=== PATIENT | female | born 1990 | race Caucasian/White ===

== ENCOUNTER 2017-11-04 00:11 | Inpatient (IN) ==
[2017-11-04] MEDS ORDERED: *HR* Nalbuphine 10 MG/ML AMPUL IVP PRN (00:21)
[2017-11-04] MEDS ORDERED: Ondansetron 4 MG/2 ML VIAL IVP PRN (00:21)
[2017-11-04] MEDS ORDERED: Naloxone 0.4 MG/ML INJ IVP PRN (00:21)
[2017-11-04] MEDS ORDERED: Famotidine 20 MG/2 ML VIAL IVP PRN (00:21)
[2017-11-04] MEDS ORDERED: Lidocaine 1% 20 ML MDV INFILT PRN (00:21)
[2017-11-04] MEDS ORDERED: Ringers Solution, Lactated 1,000 ML IVC SCH (00:30)
--- NOTE | 2017-11-04 00:35 | OB/GYN History & Physical ---
Date of Encounter: 11/04/17 Time of Encounter: 00:32 Assessment and Plan (1) 40 weeks gestation of Current visit: Yes Status: Acute admit for labor will augment labor if necessary Patient may have Nubain or Epidural for pain management when desires. History of Present Illness Chief complaint: Labor HPI: Ms. Moreno is a 27 year old female @ 40w0d presents to labor and delivery with complaints of contractions that started a few hours ago and have gotten stronger. Patient reports +FM. Patient denies any LOF or VB. Patient reports she was 1/8o% if office at her last appointment. Patient was schedule for IOL at 0800 today. Patient denies any complications with current or past . Blood type: A+ Rubella: Immune Hep B: Nonreactive GBS: Negative Past Med Surg Social Fam HX - Past Medical History Source: patient Medical history: no medical history Psychiatric history: no psych history - Past Surgical History Surgical History: no surgical history - Social History Smoking Status: Never smoker Smokeless Tobacco Status: No Alcohol use: none Drug use: none Occupational status: employed Current living situation: Home - Independent Activity Level: Independent ambulation Recent Out of Country Travel Within the Last 8 Weeks: No Exposure or Possible Exposure to Illness During Travel: No - Family History Mother Age: 56 Family Member Ethnicity: Non- Hx Family Cardiac Disorders: No Hx Family Respiratory Disorders: No Hx Family Cancer: No Hx Family GI Disorders: No Hx Family Genitourinary Disorders: No Hx Family Endocrine Disorder: No Hx Family Musculoskeletal Disorders: No Hx Family Neuromuscular Disorders: No Hx Family Neurologic Disorders: No Hx Family HEENT Disorders: No Hx Family Autoimmune Disorders: No Hx Family Reproductive Disorders: No Hx Family Psychosocial Disorders: No Hx Family Medical Disorders: No Obstetrical History - Pregnancies : 4 Para: 1 Term: 1 : 0 Ab's: 2 Livin Medications and Allergies 3 Allergy/AdvReac Type Severity Reaction Status Date / Time No Known Allergies Allergy Verified 11/04/17 00:37 Review of System OB - Constitutional Constitutional ROS IM: no chills, no fever(s), no headache(s) - Cardiovascular Cardiovascular: no chest pain, no lightheadedness, no palpitations, no syncope - Gastrointestinal Gastrointestinal: no abdominal pain, no constipation, no diarrhea, no heartburn , no nausea, no vomiting - Genitourinary Genitourinary: no abnormal vaginal bleeding, no dysuria, no flank pain, no urinary frequency, no urinary urgency, no vaginal discharge, no vaginal odor Exam - Constitutional Constitutional: well developed, well nourished, no acute distress, average body habitus - HEENT HEENT: Normocephaly, Mucus Membranes Moist - Neck Neck exam: full ROM, supple - Lungs Respiratory exam: CTAB - Cardiovascular Cardiovascular exam: RRR, +S1, +S2 - Abdomen Abdomen: Present: bowel sounds normal, gravid, non tender - Extremities Extremities exam: full ROM, normal capillary refill Deep Tendon Reflex Grade: 2+ Normal - Cervix Dilation: 3 (per RN) Effacement: 80 Station: -1 - Uterus Uterus exam: Present: normal size, normal contour - Comments Comments: FHR 125 bpm moderate variability +15x15 accels no decels noted. Contractions irregular. Cat. 1 tracing Results All other labs normal. - VTE Reasons for not Prescribing Prophylaxis: Treatment not Indicated - Low risk for VTE
[2017-11-04 00:56] LABS: Basophils % 0.2 %; Eosinophils # 0.1 K/mcL (0.0-0.6); Eosinophils % 0.4 %; Hematocrit 36.4 % (35.3-44.9); Hemoglobin 12.9 g/dL (11.5-15.4); Immature Granulocytes % 0.5 % (0-4); Lymphocytes # 2.7 K/mcL (0.6-4.6); Lymphocytes % 20.1 %; Mean Corpuscular HGB Conc 35.4 g/dL (31.6-35.5); Mean Corpuscular Hemoglobin 32.6 pg (28.0-33.3); Mean Corpuscular Volume 91.9 fL (83.0-100.0); Mean Platelet Volume 12.5 fL (9.4-12.4); Monocytes # 0.9 K/mcL (0.0-1.3); Monocytes % 7.1 %; Neutrophils # 9.6 K/mcL (1.6-8.9); Platelet Count 151 K/mcL (140-400); Red Blood Count 3.96 M/mcL (3.82-4.97); Red Cell Distribution Width 13.1 % (11.5-14.5); Segmented Neutrophils % 71.7 %
[2017-11-04 01:21] LABS: Amphetamine Screen,Urine Negative ng/mL (Cutoff=1000); Barbiturate Screen,Urine Negative ng/mL (Cutoff=200); Benzodiazepines Screen,Urine Negative ng/mL (Cutoff=200); Cannabinoid Screen,Urine Positive ng/mL (Cutoff = 50); Cocaine Screen,Urine Negative ng/mL (Cutoff= 300); Opiate Screen,Urine Negative ng/mL (Cutoff=300); Phencyclidine Screen,Urine Negative ng/mL (Cutoff=25)
[2017-11-04] MEDS ORDERED: Oxytocin 20 units/ LR 1000 mL 20 UNIT/1,000 ML BAG IVC SCH ×2 (01:30→09:41)
[2017-11-04] MEDS ORDERED: Epidural Premix (fent/bupiv) 110 ML EP ONE (02:26)
[2017-11-04] MEDS ORDERED: Lidocaine -MPF 2% 5 ML VIAL ONE (02:28)
--- NOTE | 2017-11-04 03:00 | Anesthesia Evaluation PreOp ---
Date of Encounter: 11/04/17 Time of Encounter: 02:39 - Past History Planned Operation: vaginal del, induction 40wks Cardiac History: Denies any Significant Hx Pulmonary History: Denies Any Significant HX PATIENT TRANSPORT OFFICER History: Denies Any Significant HX Other Medical History: Other (chronic back pain, hernatied disc ? level denies radiculopathy or dependent issues, states it just hurt with last epidural no lasting effects reported.) Anesthesia History: No Prior Anesthetic Complications, Past Anesthesia Alcohol Use: none Drug use: none Medications and Allergies 3 Allergy/AdvReac Type Severity Reaction Status Date / Time No Known Allergies Allergy Verified 11/04/17 00:37 Anesthesia Results - Labs 11/04/17 00:30 Anesthesia Exam - HEENT Pupil (Motor): Pupils equal Mallampati: II Teeth: Normal Oral Opening: Greater than 3 - PATIENT TRANSPORT OFFICER LOC: Oriented PATIENT TRANSPORT OFFICER Motor: Normal RUE, Normal LUE, Normal RLE, Normal LLE, Normal Face PATIENT TRANSPORT OFFICER Sensory: Normal: RUE, LUE, RLE, LLE, Face - Cardiac Rhythm: Regular - Pulmonary Breath Sounds: bilateral Clear Respiratory Effort: Symmetrical Anesthesia Assess/Plan ASA Score: 2 Modified Kingsbury Scale for Level of Consciousness: Cooperative, oriented, and tranquil Anesthetic Plan: General, Regional Monitoring Plan: Standard Monitors Recovery Plan: PACU
[2017-11-04] MEDS ORDERED: Epidural Premix (fent/bupiv) 110 ML EP SCH (03:15)
[2017-11-04] MEDS ORDERED: Mag Hydrox/Al Hydrox/Simeth 30 ML UDC PO PRN (03:17)
--- NOTE | 2017-11-04 04:02 | Anesthesia Procedures ---
Date of Encounter: 11/04/17 Time of Encounter: 02:41 Procedures: Anesthesia - Epidural/Spinal Patient ID/Chart reviewed: Yes Patient examined: Yes OB Eval: Gestational age: term OB Eval: : 4 OB Eval: Hx Para: 1 OB Eval: Contractions: Non-stressed pattern Consent Obtained: Yes Supplemental Oxygen: None/Room Air Site Prep: Aseptic Technique, Sterile prep and drape, 0.5% Chlorhexidine/Alcohol Patient position: upright Local Anesthetic: Lidocaine 1% Amount of Local Anesthetic used: 2 Touhy Needle Gauge: 18 Touhy Needle Depth (cm): 8 Catheter Depth at Skin (cm): 12 Test Dose (1.5% Lido + Epi): Volume given (mls): 3 Test Dose Result: Negative Loading Dose: Other: 10ml from solution Infusion Med: 0.125% Bupivacaine w/ 2 mcg/ml Fentanyl Infusion Rate (mls/hr): [address]: Tegaderm, Tape Interspace Used: L3-L4 Loss of Resistance (PAT): Yes (saline) Blood: No CSF: No Paresthesia: No Procedure: vss though out, FHR stable per staff
--- NOTE | 2017-11-04 04:19 | OB Labor Progress Note ---
Date of Encounter: 11/04/17 Time of Encounter: 04:16 Labor Progress Note - Subjective Subjective: Patient resting comfortably with epidural in place. Discussed POC with patient. Patient denies any questions or concerns. Pitocin has been started 2 milliunits. - Cervix Cervix: 6/90/-1 - Heart Tones Heart Tones: 125 bpm moderate amount of variabilit +15x15 accels no decels noted. Cat. 1 tracing - [place]: 2-3 min apart - Interventions Interventions: SVE, AROM moderate amount of clear fluid. IUPC placed without difficulty. Patient tolerated well. - Plan Plan: Continue labor management. anticipate
--- NOTE | 2017-11-04 06:28 | OB/GYN Procedure Note ---
Delivery - Delivery Date: 11/04/17 Provider: Brissa Bartholomew Intrapartum events: none Delivery augmentation: rupture of membranes, pitocin Delivery monitor: external FHT, external uterine Anesthesia: epidural Quantitated Blood Loss: 150 - Infant (s) A Infant Delivery Date: 11/04/17 Delivery Time: 05:50 Presentation: vertex Position: SPENCER Route of delivery: Gender: Male Viability: Viable Pounds: 6 Ounces: 5 Weight Gram: 2865 kg at 1 minute: 9 at 5 mins: 9 Shoulder Dystocia: not encountered Placenta: spontaneous, uterine exploration Cord: nuchal cord (X1), 3 umbilical vessels - Repair Episiotomy: none Laceration Description: Perineal - 2nd Degree (repaired with 3-0 vicryl) - Complications Delivery complications: none - Disposition Mom disposition: stable in LDR [place] disposition: stable in LDR - Comments Comments: Called to LDR patient complete and states she needs to push. Patient was placed in stirrups and prepped for vaginal delivery. Under maternal effort patient spontaneously delivered a viable male over a 2nd degree perineal laceration. A nuchal cord x1 was loose and easily reduced, no meconium or shoulder dystocia was encountered. was placed on maternal abdomen. The second degree perineal laceration was repaired with 3-0 vicryl. Cord was clamped and cut after pulsations ceased. Placenta delivered spontaneously and intact. Pericare provided, All counts correct. Both mother and infant stable in LDR for 2 hour recovery.
[2017-11-04] MEDS ORDERED: Benzocaine/Menthol 56 GM AEROSOL SPRAY TP PRN (09:41)
[2017-11-04] MEDS ORDERED: Measles/Mumps/Rubella Vacc 0.5 ML VIAL SQ PRN (09:41)
[2017-11-04] MEDS ORDERED: Prenatal Vit/FA 1 EACH TABLET PO SCH (09:41)
[2017-11-04] MEDS ORDERED: Lanolin 7 G OINT...G. TP PRN (09:41)
[2017-11-04] MEDS ORDERED: Acetaminophen 325 MG TABLET PO PRN (09:41)
[2017-11-04] MEDS ORDERED: *HR* HYDROcodone/Acet 5/325 mg TABLET PO PRN (09:41)
[2017-11-04] MEDS: Ibuprofen 600 MG TABLET PO PRN ×2 (09:48→20:09)
[2017-11-05] MEDS: Ibuprofen 600 MG TABLET PO PRN (07:26)
[2017-11-05 08:17] VITALS: BP 115/76
--- NOTE | 2017-11-05 08:58 | Discharge Summary ---
Date of Encounter: 11/05/17 Time of Encounter: 08:57 - Discharge Diagnosis (1) 40 weeks gestation of Priority: Secondary Status: Acute (2) Vaginal delivery Priority: Primary Status: Acute Comments: Continue routine care discharge home today follow up with Dr. Dietz in 4-6 weeks (3) Breast feeding status of mother Priority: Secondary Status: Acute Comments: support prn - Discharge Medications Prescriptions: Ibuprofen [Motrin] 600 mg PO Q6HR PRN #60 tablet PRN Reason: Cramping Breast Pump [BREAST PUMP] 1 each .ROUTE AD #1 each Home Medications: Benzocaine/Menthol [place] [Dermoplast Hem[place]] 1 appl TP QID PRN aerosol 11/05/17 [Rx] Breast Pump [BREAST PUMP] 1 each .ROUTE AD #1 each 11/05/17 [Rx] Docusate [Colace] 100 mg PO BID capsule 11/05/17 [Rx] Ibuprofen [Motrin] 600 mg PO Q6HR PRN #60 tablet 11/05/17 [Rx] Lanolin [Lansinoh] 1 appl TP TID PRN oint...g. 11/05/17 [Rx] Vit/FA 1 each PO DAILY tablet 11/05/17 [Rx] Allergies/Adverse Reactions: 3 Allergy/AdvReac Type Severity Reaction Status Date / Time No Known Allergies Allergy Verified 11/04/17 00:37 Data Procedures and tests throughout hospitalization: Laboratory Tests 11/04/17 11/04/17 11/04/17 00:30 00:30 00:45 WBC 13.3 H RBC 3.96 Hgb 12.9 Hct 36.4 MCV 91.9 MCH 32.6 MCHC 35.4 RDW 13.1 Plt Count 151 MPV 12.5 H Immature Gran % 0.5 Seg Neutrophils % 71.7 Lymphocytes % 20.1 Monocytes % 7.1 Eosinophils % 0.4 Basophils % 0.2 Neutrophils # 9.6 H Lymphocytes # 2.7 Monocytes # 0.9 Eosinophils # 0.1 Basophils # 0.0 Urine Opiates Screen Negative Ur Barbiturates Screen Negative Ur Phencyclidine Scrn Negative Ur Amphetamines Screen Negative U Benzodiazepines Scrn Negative Urine Cocaine Screen Negative U Marijuana (THC) Screen Positive H Ur Drug Screen Interp See Below Specimen Rejected Labelling Date of admission: 11/04/17 00:11 Primary care physician: Chilo Arevalo CNP Consults: 11/04/17 09:41 Consult to [employer]namenter [CONS] Routine Comment: Vaginal delivery, consult needed Consult to [employer] [CONS] Routine Reason for SW Consult: cord stat Discharging clinician: Brissa Bartholomew Anticipated date of discharge: 11/05/17 - Patient Status Disposition: Home, Self-Care Condition: Good Functional capacity at discharge: independent ambulation - Discharge Instructions Follow Up With: Chilo Arevalo CNP [Primary Care Provider] - Jc Dietz DO [Partnered Physician] - - Diet and Activity Activity: increase activity as tolerated Diet: regular diet Hospital Course Reason for admission: active labor Delivery: Episiotomy: none Laceration: 2nd degree Other procedures: none complications: none Discharge diagnosis: IUP at term delivered [place] baby: male (breast feeding) Time Attestation: Total time spent providing and/or coordinating discharge services: Time Spent: Less than 30 minutes Exam - Constitutional Vitals: Temp Pulse Resp BP Pulse Ox 97.8 F 60 16 115/76 97 11/05/17 08:15 11/05/17 08:15 11/05/17 08:15 11/05/17 08:15 11/05/17 08:15 General appearance IM: A&O X 3, pleasant, answers questions appropriately - Respiratory Respiratory exam: Present: CTAB - Cardiovascular Cardiovascular exam IM: Present: RRR, +S1, +S2 - GI/Abdominal GI/Abdominal exam IM: normal bowel sounds - Uterine Tone: Firm Uterus Position: 1 Finger Below Umbilicus, Midline - Extremities Exam Extremities exam IM: Present: full ROM, normal capillary refill, normal inspection - Neurological Exam Neurological exam: alert, oriented X3, reflexes normal
== END 2017-11-05 11:31 | disposition home or self-care (01) | DRG 775 ==
LOC: 1NENULAB 00:11 → 1NENUOBS 08:47
PROVIDERS: ADMIT Advanced Practice Midwife; ATTEND Obstetrics & Gynecology

== ENCOUNTER → 2021-02-06 14:01 | Observation (INO) | END | disposition home or self-care (01) | LOC: 1NENULAB | PROVIDERS: ADMIT Advanced Practice Midwife; ATTEND Advanced Practice Midwife ==

== ENCOUNTER 2021-03-19 07:42 | Inpatient (IN) ==
[~2021-03-19 07:42] MED LIST: *HR* Nalbuphine 10 MG/ML AMPUL IV PRN; Azithromycin 500 MG in 0.9 % Sodium Chloride 250 ML IVPB PRN; Famotidine 20 MG/2 ML VIAL IVP PRN; Metoclopramide 10 MG/2 ML VIAL IVP PRN; Naloxone 0.4 MG/ML INJ IVP PRN; Ondansetron 4 MG/2 ML VIAL IVP PRN; Ringers Solution, Lactated 1,000 ML IVC SCH
[2021-03-19 08:14] LABS: Basophils % 0.3 %; Eosinophils # 0.1 K/mcL (0.0-0.6); Eosinophils % 0.6 %; Hematocrit 36.6 % (35.3-44.9); Hemoglobin 12.3 g/dL (11.5-15.4); Immature Granulocytes % 0.7 % (0-4); Lymphocytes # 2.3 K/mcL (0.6-4.6); Lymphocytes % 19.4 %; Mean Corpuscular HGB Conc 33.6 g/dL (31.6-35.5); Mean Corpuscular Hemoglobin 30.9 pg (28.0-33.3); Mean Platelet Volume 13.1 fL (9.4-12.4); Monocytes # 0.9 K/mcL (0.0-1.3); Monocytes % 7.7 %; Neutrophils # 8.5 K/mcL (1.6-8.9); Platelet Count 154 K/mcL (140-400); Red Blood Count 3.98 M/mcL (3.82-4.97); Red Cell Distribution Width 13.2 % (11.5-14.5); Segmented Neutrophils % 71.3 %; White Blood Count 11.9 K/mcL (4.3-11.1)
[2021-03-19 08:36] LABS: Alanine Aminotransferase 9 Units/L (7-52); Aspartate Amino Transferase 13 Units/L (13-39); BUN/Creatinine Ratio 11 (6-26); Blood Urea Nitrogen 8 mg/dL (6-20); Lactate Dehydrogenase 172 Units/L (140-271); Uric Acid 5.6 mg/dL (2.3-7.6); eGFR For African Americans > 60 (> 60); eGFR For Non-African Americans > 60 (> 60)
[2021-03-19 08:53] LABS: Influenza A PCR Negative (Negative); Influenza B PCR Negative (Negative); Resp. Syncytial Virus PCR Negative (Negative)
[2021-03-19 08:55] LABS: SARS-CoV-2 by PCR (In House) Positive (Negative)
[2021-03-19 09:04] LABS: Amphetamine Screen,Urine Negative ng/mL (Cutoff=1000); Barbiturate Screen,Urine Negative ng/mL (Cutoff=200); Benzodiazepines Screen,Urine Negative ng/mL (Cutoff=200); Cannabinoid Screen,Urine Negative ng/mL (Cutoff = 50); Cocaine Screen,Urine Negative ng/mL (Cutoff= 300); Creatinine,Urine 62 mg/dL; Opiate Screen,Urine Negative ng/mL (Cutoff=300); Phencyclidine Screen,Urine Negative ng/mL (Cutoff=25); Protein/Creatinine Ratio,Urine 0.11 mg/mg (0.00-0.20)
[2021-03-19] MEDS ORDERED: Oxytocin 20 units/ LR 1000 mL 20 UNIT/1,000 ML BAG IVC SCH (10:15)
[2021-03-20] MEDS ORDERED: *HR* FentaNYL (PF) 100 MCG/2 ML VIAL EP ONE (00:47)
[2021-03-20] MEDS ORDERED: Ropivacaine/PF 0.2% 20 ML VIAL EP ONE (00:47)
[2021-03-20] MEDS ORDERED: EPHEDrine 50 MG/ML VIAL IVP PRN (00:47)
[2021-03-20] MEDS ORDERED: Epidural Premix (fent/bupiv) 110 ML EP ONE (00:53)
[2021-03-20] MEDS ORDERED: Epidural Premix (fent/bupiv) 110 ML EP SCH (01:00)
[2021-03-20] MEDS ORDERED: Benzocaine/Menthol 56 GM AEROSOL SPRAY TP PRN ×2 (02:31→02:38)
[2021-03-20] MEDS ORDERED: Measles/Mumps/Rubella Vacc 0.5 ML VIAL SQ PRN ×2 (02:31→02:38)
[2021-03-20] MEDS ORDERED: Lanolin 7 G OINT...G. TP PRN ×2 (02:31→02:38)
[2021-03-20] MEDS ORDERED: Ondansetron ODT 4 MG TAB.RAPDIS SL PRN ×2 (02:31→02:38)
[2021-03-20] MEDS ORDERED: Rho Immune Globulin 1,500 UNIT SYRINGE IM PRN ×2 (02:31→02:38)
[2021-03-20] MEDS ORDERED: Acetaminophen 325 MG TABLET PO SCH (02:45)
[2021-03-20] MEDS ORDERED: Oxytocin 20 units/ LR 1000 mL 20 UNIT/1,000 ML BAG IVC SCH ×2 (02:45)
[2021-03-20] MEDS: Acetaminophen 325 MG TABLET PO SCH ×2 (03:35→17:42)
[2021-03-20] MEDS: Ibuprofen 600 MG TABLET PO SCH ×3 (05:17→17:40)
[2021-03-20] MEDS ORDERED: Ibuprofen 600 MG TABLET PO SCH (05:31)
[2021-03-20 05:32] VITALS: O2SAT 96
[2021-03-20 07:12] VITALS: BP 124/78; TEMP 98.5
[2021-03-20] MEDS ORDERED: Prenatal Vit/FA 1 EACH TABLET PO SCH ×2 (09:00)
[2021-03-20 16:54] VITALS: PULSE 73
== END 2021-03-20 17:44 | disposition home or self-care (01) | DRG 805 ==
LOC: 1NENULAB → 1NENUOBS 03-20 03:23
PROVIDERS: ADMIT Advanced Practice Midwife; ATTEND Advanced Practice Midwife